=== PATIENT | female | born 1980 | race Caucasian/White ===

== ENCOUNTER 2019-03-20 09:41 | Inpatient (IN) | payer OTHER, BC ==
[2019-03-20 10:15] LABS: Hematocrit 37 % (35-47); Hemoglobin 12.9 g/dL (12.0-16.0); Mean Corpuscular HGB Conc 35 g/dL (31-36); Mean Corpuscular Hemoglobin 32 pg (27-31); Mean Corpuscular Volume 92 fL (80-97); Platelet Count 298 10^3/uL (150-450); Red Cell Distribution Width 14 % (10-15)
[2019-03-20] MEDS ORDERED: Terbutaline INJ* 1 MG/ML VIAL SUBCUT ONE (10:25)
[2019-03-20] MEDS ORDERED: Misoprostol TAB* 100 MCG VAGINAL ONE (11:35)
--- NOTE | 2019-03-20 11:44 | HP ---
General Information - Reason for Visit IUP at 39-3/7 s/p successful ECV this morning here for induction of labor - General Information Maternal Age: 38 Grav: 2 Para: 1 SAB: 0 IEA: 0 Estimated Due Date: 03/24/19 Determined By: LMP Gestational Age in Weeks/Days: 39-3/7 Maternal Blood Type and Rh: A Positive - Results this Serology/RPR Result: Non-Reactive Rubella Result: Immune HBsAg Result: Negative HIV Result: Negative GBS Culture Result: Negative Past Medical History Delivery History: Hx Uncomplicated Vaginal Delivery Delivery History Comment: 08/07/2015 7lb 11oz female. [place] [facility] [place] [facility] [place] Jermaine De Leon CNM Pertinent Past Medical History: See Records Past Medical History Comment: Anxiety Pertinent Past Surgical History: See Records Past Surgical History Comment: 1998 wisdom tooth extraction 2004 breast reduction liposuction only Pertinent Family History: See Records Family History Comment: Father: , lung cancer MGM: , cancer - Antepartal Records Antepartal Records: Reviewed, Complicated by: - achieved via assisted fertility: IVF, Polyhydramnios, Breech presentation s/p ECV x 2 Review of Systems Constitutional: Comfortable CV Complaint: No Respiratory: Shortness of Breath: No Gastrointestinal: No Nausea/Vomiting, Normal Bowel Movement Genitourinary: No Dysuria, No Bleeding, No Leaking Fluid Musculoskeletal: No Complaint, No Epigastric Pain Neurological: No Headache, No Visual Changes Movement: Normal Exam Allergies/Adverse Reactions: Allergies No Known Allergies Allergy (Verified 08/08/15 01:36) BP 119/79 HR 83 RR 20 T 97.9 SpO2 100% on RA Lab Values - Entire Visit: Laboratory Tests 03/20/19 03/20/19 10:00 10:00 WBC 9.0 RBC 4.00 Hgb 12.9 Hct 37 MCV 92 MCH 32 H MCHC 35 RDW 14 Plt Count 298 MPV 8.0 Blood Type A Positive Antibody Screen Negative - Measurements Height: 5 ft 8 in Weight: 190 lb Body Mass Index (BMI): 28.8 Pre- Weight: 164 lb - Exam Breast: Breast Exam Deferred CVA: No CVA Tenderness Extremities: No Edema Heart: Normal Rhythm/Heart Sounds HEENT: No Significant Findings Lungs: Clear Bilaterally Rectal: Rectal Exam Deferred Reflexes: DTR 2+ Thyroid: No Thyromegaly - Abdominal Exam Abdomen Exam: Non-Tender - Ultrasound/Biophysical Profile Ultrasound Status: Bedside Exam - Before ECV to confirm breech presentation and after successful ECV to confirm vertex. See MD notes Targeted Exam Findings See L&D Outpatient Visit Provider Note for Findings: Yes Cervical Exam: Closed Effacement: Thick Station: High Presenting Part: Vertex Membrane Status: Intact Sterile Speculum Exam: Not done Bleeding/Discharge: None EFM Findings - External Monitor Findings Baseline Heart Rate: 140 External Monitor Findings: Accelerations Present, No Pattern of Variable or Late Decelerations, Variability Moderate, Baseline Stable External Monitor Findings Comment: No evidence of metabolic acidemia Contractions: Irregular, Mild Assessment/Plan - Assessment IUP at 39-3/7 s/p successful ECV to vert fetus from breech to vertex No evidence of metabolic acidemia Polyhydramnios - Plan Plan: Cervical Ripening, Admit - Anticipate Vaginal Delivery Plan Comment: Admit s/p successful ECV to initiate induction of labor. Given unfavorable cervix PARQ cervical ripening. Recommend trial of vaginal misoprostol. Pt and FOB agree. Will also apply abdominal binder in presence of polyhydramnios to encourage fetus to remain vertex until onset active labor. Close monitoring of maternal status and position. Anticipate progression into active labor - Date/Time of Admission Date of Admission: 03/20/19 Time of Admission: 11:35
--- NOTE | 2019-03-20 12:33 | PN ---
Progress Note - Progress Note Date of Service: 03/20/19 Note: Special Procedure - External Cephalic version Pt is a 38 y/o at 39w3d who presents for ECV. Patient has history of x 1. Fetus has been in breech presentation x several weeks. Prior version performed on 03/05 was successful, but ultimately fetus reverted back to opal breech presentation. Pt presents today after extensive counseling in the outpatient setting for repeat attempt at ECV, which if successful will be followed by IOL at term secondary to unstable lie. Notably, pt has also been diagnosed with polyhydramnios. On last formal USN performed on 02/24/2019 pt was noted to have an LIZBET of 37.7, posterior placenta and fetus in Breech presentation with an EFW of 3531g. Has hx of 7#11oz delivery at term, pt feels that this baby is about the same size or smaller. Today's USN findings are consistent with those outlined above. Fetus in opal breech presentation with back on the maternal left. The risks versus benefits versus alternative of external cephalic version versus expectant management versus primary versus vaginal breech were carefully discussed with the patient. It was explained to the patient that while persistent breech presentation is not an absolute contraindication to attempted vaginal , due to potential complications and risk that are inherent to breech vaginal , few providers offer attendance of breech vaginal today. Discussed that proceeding with elective section secondary to breech presentation at term without attempt at external cephalic version would be a reasonable option also. Carefully reviewed with patient that the risks of external cephalic version include but are not limited to rupture of membrances, heart rate decelerations, placental abruption, uterine rupture and even in rare cases. Discussed with patient that in the event that ECV was unsuccessful, proceeding with primary is this provider's recommendation given presentation and polyhydramnios at term. Discussed with patient that in the event that ECV was successful my recommendation would be to proceed directly with IOL given term and unstable lie, despite cervix being closed/thick/high on today's exam performed by the hotel maid. Discussed with patient that in the event that baby were to revert to breech presentation during the induction process, if this occurred earlier enough in the process, membranes remained in tact and status was re-assuring and additional version could be attempted, and this could be discussed further at that time in that event. After careful consideration and discussion patient elected to proceed with ECV. Consent forms for both ECV and primary were reviewed and signed. An IV was placed, IVF administered and a CBC and T&S were collected. Pt is known RH+. Patient was monitored on NST and noted to have a reactive NST with moderate variability for approximately 1 hour. Occasional contractions were noted. IVF were administered. Pt voided. Terbutaline was administered SC. Approximately 20 minutes after administration of terbutaline the head of the bed was lowered and the patient was placed in a slight trendelenberg position. ECV was attempted by standing on the maternal right side, beauty operator apprentice right hand applied just superior to the pubic symphisis and the left hand posterior to the occiput. While lifting the buttocks out of the maternal pelvis a forward roll was attempted. The fetus readily shifted into a vertex presentation with minimal beauty operator apprentice effort and minimal maternal discomfort. Heart and position was monitored during the procedure with the bedside USN. Mother was taken out of trendelenburg position, the head of the bed was raised and she was placed in a throne position. Fetus was placed back on the external monitor and cephalic presentation was again confirmed with the USN. Patient's care was handed over to hotel maid at this point, who will begin induction after monitoring of fetus x ~ 30 minutes exhibits a reassuring tracing. DO SUMA Garrido
[2019-03-20 13:03] LABS: Urine Benzodiazepine Screen None Detected (None Detect); Urine Opiates Screen None Detected (None Detect)
--- NOTE | 2019-03-20 16:41 | PN ---
Progress Note - Progress Note Date of Service: 03/20/19 Note: S: Pt resting comfortably in chair at bedside. Denies feeling UCs. Reports some discomfort with movements especially in RUQ O: BP 115/69 HR 93 T 98.8 RR 20 FHT 150bpm. Moderate variability. +Accels. No decels UCs q 1-2 min, mild VE: Unable to assess. Pt didn't tolerate well. Vtx palpated and confirmed by bedside sono A: IUP at 39-3/7 here for induction s/p successful ECV Fetus remains vertex Not in active labor No evidence of metabolic acidemia P: Given current UC pattern will continue to monitor for the next 1-2 hours then reassess. If UCs space out consider repeat dose of misoprostol. If not consider trial low dose pitocin. Pt and FOB agree.
--- NOTE | 2019-03-20 18:12 | PN ---
Progress Note - Progress Note Date of Service: 03/20/19 Note: S: Pt comfortable at bedside. Eating some dinner with her . Denies feeling any strong UCs O: BP 115/69 HR 93 FHT 145bpm. Moderate variability. +Accels. No decels UCs q 1-3 min, mild to palpation VE deferred A: IUP at 39-3/7 here for induction s/p successful ECV No evidence of metabolic acidemia Latent labor P: PARQ IV pitocin. Pt and FOB consent. Will try low dose pitocin. Pt reports desire for epidural in active labor. Consult with anesthesia who is aware. Due to pt's PMH anaphylaxis with prolactin release after first baby she met with an top taper machine and requests that we try to minimize use of NSAIDs and opioids so as not to lower her threshold for anaphylaxis. Pharmacy to mix an epidural bag with ropivicaine only so it's ready once pt is in active labor.
[2019-03-20] MEDS ORDERED: ROPIVACAINE EPIDURAL SCH (19:00)
[2019-03-20] MEDS ORDERED: Lactated Ringers 1000 ML Bag* 1,000 ML IV SCH (19:00)
[2019-03-20] MEDS ORDERED: Oxytocin in LR* 20 UNITS/1,000 ML BAG IVPB SCH (19:00)
[2019-03-20] MEDS ORDERED: Lidocaine 2% JELLY* 6 ML JELLY TOPICAL ONE (20:18)
--- NOTE | 2019-03-20 22:54 | PN ---
Progress Note - Progress Note Date of Service: 03/20/19 Note: S: Pt feeling a little more uncomfortable with UCs particularly where fetus is positioned in the RUQ. Reports good rest between UCs. Resting in bed. Still able to speak through UCs. Lidocaine jelly 2% applied to vagina in anticipation of attempt at VE O: BP: 114/70 HR: 84 T: 97.4 FHT: 135bpm. Moderate variability. +Accels. No decels UCs q 1-2 IV pitocin at 10mu/min VE: Pt very uncomfortable. Outer os 1cm unable to assess effacement. Vtx -1. + bloody show A: IUP at 39-3/7 here for induction of labor s/p successful ECV Latent labor No evidence of metabolic acidemia P: Continue IV pitocin. Close monitoring of maternal/ status. Will try warm pack over RUQ and position changes to help with comfort. If pt reaches the level of discomfort where she's ready for an epidural will place prior to attempting VE. Pt agrees.
[2019-03-20] MEDS: Famotidine TAB* 20 MG PO SCH (23:23)
[2019-03-20] MEDS: Cetirizine* 10 MG TAB PO SCH (23:23)
[2019-03-21] MEDS ORDERED: Sodium Citrate/Citric Acid* 15 ML UDC PO PRN (02:10)
[2019-03-21] MEDS ORDERED: Lactated Ringers 1000 ML Bag* 500 ML IV PRN ×2 (02:10)
[2019-03-21] MEDS ORDERED: Famotidine TAB* 20 MG PO PRN (02:10)
[2019-03-21] MEDS ORDERED: Lactated Ringers 1000 ML Bag* 1,000 ML IV ONE (02:10)
[2019-03-21] MEDS ORDERED: Phenylephrine 40 MCG/ML SYRINGE IV PUSH PRN ×2 (02:10)
[2019-03-21] MEDS ORDERED: EPHEDrine (Pressors)* 50 MG/ML VIAL IV PUSH PRN (02:10)
--- NOTE | 2019-03-21 02:30 | PN ---
Progress Note - Progress Note Date of Service: 03/21/19 Note: S: Pt experienced spontaneous rupture of membranes to copious clear fluid 2019 at 2326. Not long after requested CEI placement. Comfortable s/p epidural placement. O: BP 104/61 HR 86bpm T 97.4 FHT 140bpm. Moderate variability. +Accels. Occ variable decel with rapid return to baseline UCs q 2-3 min, IV Pitocin at 6mu/min VE v. posterior 4cm/80%/vtx -1, clear fluid A: IUP at 39-4/7 here for induction s/p successful ECV Early active labor Good pain relief from epidural analgesia Cat II FHT, doubt metabolic acidemia P: Enc rest. Continue IV pitocin. Close monitoring of maternal/ status.
[2019-03-21] MEDS ORDERED: Lactated Ringers 1000 ML Bag* 1,000 ML IV SCH ×2 (03:00→08:00)
[2019-03-21] MEDS ORDERED: Ropivacaine 0.2% EPIDURAL* 200 MG/100 ML BAG EPIDURAL SCH (03:00)
--- NOTE | 2019-03-21 03:57 | PN ---
Progress Note - Progress Note Date of Service: 03/21/19 Note: S: Pt with a lot of one sided discomfort on the right side. Left side completely numb. Good relief with use of peanut ball. O: BP 110/76 HR 85 T 98.4 FHT 140bpm. Moderate variability. +Accels. Some variable decels, rapid return to baseline UCs q 2, IV pitocin at 3mu/min VE 8-9cm/100%/vtx -1, moderate bloody show A: IUP at 39-4/7 here for induction s/p successful ECV Active labor Cat II FHT, doubt metabolic acidemia P: Close monitoring of maternal/ status. Anticipate trial of pushing soon
[2019-03-21] MEDS ORDERED: Witch Hazel PAD* JAR ONE (07:46)
[2019-03-21] MEDS ORDERED: Dibucaine 1% 28.35 GM TUBE ONE (07:46)
[2019-03-21] MEDS ORDERED: Witch Hazel PAD* JAR TOPICAL PRN (07:50)
[2019-03-21] MEDS: Famotidine TAB* 20 MG PO SCH (07:58)
[2019-03-21] MEDS: Cetirizine* 10 MG TAB PO SCH ×2 (07:58→19:30)
[2019-03-21] MEDS ORDERED: Oxytocin in LR* 20 UNITS/1,000 ML BAG IVPB SCH (08:00)
--- NOTE | 2019-03-21 08:04 | PROCNOTE ---
[facility] OB: Delivery Note - Delivery A Date of : 03/21/19 Time of : 07:14 [place] Sex: Female Weight at : 8 lb 3 oz Score 1 Minute: 4 Score 5 Minutes: 8 Gestational Age in Weeks and Days at Delivery: 39 Weeks and 4 Days Delivery Method: Spontaneous Vaginal Labor: Induced - following successful ECV Did Patient attempt ?: N/A, No Previous Amniotic Fluid: Clear Estimated Blood Loss: 300 Anesthesia/Analgesia: CEI for Labor - placed by Dr. Salazar Delivered By: Jermaine De Leon - Assisted by Dr. Talavera - Nursery Level of Nursery: Special Care - Perineum Perineal Injury: 2nd Degree - repaired with 2-0 and 3-0 Vicryl in the usual fashion under local infiltration 1% lidocaine and epidural analgesia. Anatomy restored and good hemostasis achieved. Pt tolerated well Perineal Repair: By Delivering Practioner - Events Delivery Events of Note: Pitocin During Labor, Supplemental O2 to Mother - Additional Delivery Notes Additional Delivery Notes: Patient admitted at 39-3/7 following a successful ECV for induction of labor. Received Misoprostol 25mcg per vagina x 1 followed by IV pitocin which led to spontaneous rupture of membranes to copious clear fluid and onset active labor. Received labor epidural per preference with excellent relief. Length of active phase 5 hours, 1 min. Pushed x [address] Talavera called to the bedside due to lack of descent after 1 hour of pushing despite strong maternal pushing effort and frequent position changes. With continued coaching and position changes slow steady descent led to . liveborn female. Slow, controlled delivery of head. OA to [place]. Compound delivery with posterior arm by face. Tight nuchal cord x 1. Unable to reduce. Unable to somersault through. With assistance from Dr. Talavera cord clamped x 2 and cut. Shoulders followed easily with maternal push. initially stunned. Moved to warmer for evaluation by Special Care RN. Apgars 4/8. Spontaneous delivery intact placenta. Membranes complete. Placenta with calcified appearance, clot on one half and velamentous insertion. Sent to pathology. Repair of second degree perineal laceration as above. EBL 300mL. At time of note mother and in stable condition. Planning to bottle feed due to maternal history of anaphylactic reaction to prolactin/let down. See waste reclaimer consult and plan in chart.
[2019-03-21] MEDS: Acetaminophen TAB* 325 MG PO PRN ×4 (11:03→23:05)
[2019-03-21] MEDS: Docusate CAP* 100 MG PO SCH ×3 (11:03→19:29)
[2019-03-21] MEDS: Dibucaine 1% 28.35 GM TUBE PR PRN (19:30)
[2019-03-22] MEDS: Acetaminophen TAB* 325 MG PO PRN ×3 (03:34→12:53)
[2019-03-22 05:49] LABS: ABS Basophils 0.1 10^3/ul (0-0.2); ABS Lymphocytes 2.6 10^3/ul (1.0-4.8); ABS Monocytes 1.2 10^3/ul (0-0.8); ABS Neutrophils 11.7 10^3/ul (1.5-7.7); Eosinophil % 0.3 %; Hematocrit 30 % (35-47); Hemoglobin 10.3 g/dL (12.0-16.0); Lymphocyte % 16.5 %; Mean Corpuscular HGB Conc 34 g/dL (31-36); Mean Corpuscular Hemoglobin 32 pg (27-31); Mean Corpuscular Volume 93 fL (80-97); Mean Platelet Volume 7.7 fL (7.4-10.4); Platelet Count 253 10^3/uL (150-450); Red Blood Count 3.25 10^6 /uL (3.70-4.87); Red Cell Distribution Width 14 % (10-15); White Blood Count 15.6 10^3/uL (3.5-10.8)
[2019-03-22 07:53] VITALS: BP 118/71
[2019-03-22] MEDS ORDERED: Ferrous Gluconate TAB* 324 MG TAB PO SCH (09:00)
[2019-03-22] MEDS: Cetirizine* 10 MG TAB PO SCH (09:25)
[2019-03-22] MEDS: Docusate CAP* 100 MG PO SCH ×2 (09:25→15:43)
[2019-03-22] MEDS: Famotidine TAB* 20 MG PO SCH (09:26)
[2019-03-22] MEDS: Dibucaine 1% 28.35 GM TUBE PR PRN (12:53)
== END 2019-03-22 15:43 | disposition home or self-care (01) | DRG 807 ==
LOC: MCHOBOUT 09:41 → MCHOB 11:35
PROVIDERS: ADMIT Midwife; ATTEND Midwife
PROC: 10E0XZZ Delivery of Products of Conception, External Approach (ICD-10-PCS; principal; 2019-03-21)
PROC: 0KQM0ZZ Repair Perineum Muscle, Open Approach (ICD-10-PCS; 2019-03-21)
PROC: 3E0P7VZ Introduction of Hormone into Female Reproductive, Via Natural or Artificial Opening (ICD-10-PCS; 2019-03-21)
PROC: 10S0XZZ Reposition Products of Conception, External Approach (ICD-10-PCS; 2019-03-21)
DX: O40.9XX0 Polyhydramnios, unspecified trimester, not applicable or unspecified (principal); Z37.0 Single live birth; O70.1 Second degree perineal laceration during delivery; O69.1XX0 Labor and delivery complicated by cord around neck, with compression, not applicable or unspecified; O76 Abnormality in fetal heart rate and rhythm complicating labor and delivery; O32.0XX0 Maternal care for unstable lie, not applicable or unspecified; O32.1XX0 Maternal care for breech presentation, not applicable or unspecified; Z3A.39 39 weeks gestation of pregnancy
CPT/HCPCS: 36415; 59412; 76815; 80307; 85025; 85027; 86850; 86900; 86901; 88307; A9270-GY; J2795; J3105; J7512; S0191